=== PATIENT | female | born 1965 | race Caucasian/White ===

== ENCOUNTER 2016-10-06 12:30 | Emergency (ER) | payer OTHER ==
[~2016-10-06] VITALS: Ht 170.2 cm; Wt 80.3 kg
--- NOTE | ~2016-10-06 | CR72 ---
[facility] A Service of [facility] & [facility] RADIOLOGY TEXT RESULTS PATIENT: JAIRON POWER LOCATION: SED : 61 UNIT #: [id number] AGE: [address]: Althea Wood MD SEX: F ORDER DR: [id number] [address] [address] [id number] E MR#: [id number] Acc #: [id number] NAME: JAIRON POWER. : 1965 SEX: F STUDY DATE/TIME: 10/06/2016 13:32 UNIT: SED ROOM: STUDY DESCRIPTION: CR Chest Single View Portable Attending Physician: Althea Wood M.D. Ordering Physician: Althea Wood M.D. Primary Care Physician: Primary Care Physician No MEDICAL IMAGING REPORT This report is preliminary unless electronic signature is present. EXAM Portable chest 10/06 INDICATIONS Shortness of air for 1 week. History of smoking. FINDINGS A single AP portable view of the chest shows both lungs to be clear. The heart is normal in size. The mediastinal contour is normal. No significant bone abnormalities are seen. IMPRESSION Normal portable chest. Dictated by... Rodri Kc Jr., M.D. THIS IS AN ELECTRONICALLY VERIFIED REPORT Rodri Kc Jr., M.D. at 10/08/2016 2:28 PM THELMA/iram TD: 10/06/2016 20:16 JOB #: [id number] MEDICAL IMAGING REPORT Page 1 of 1
--- NOTE | ~2016-10-06 | EKG ---
PATIENT: JAIRON POWER UNIT #: [id number] Ventricular Rate: 83 BPM Atrial Rate: 83 BPM P-R Interval: 158 ms QRS Duration: 104 ms Q-T Interval: 398 ms QTC Calculation(Bezet): 467 ms P [place]: 54 degrees Calculated R [place]: 47 degrees Calculated T [place]: 51 degrees Diagnosis Line: Normal sinus rhythm Diagnosis Line: Normal ECG Diagnosis Line: No previous ECGs available Diagnosis Line: Confirmed by FRANCISCO BOB MD ([id number]) on Diagnosis Line: 10/07/2016 8:52:05 PM INTERPRETING MD: PAULINO ALVAREZ
[~2016-10-06 12:30] MED LIST: ALPRAZOLAM PO; AVELOX400 M1 PO; CELEXA PO; COMBIVENT MININEB INH; HYDROCODON-ACE1 EAC5 PO; MEDROL PO; NORCO 5/325 TAB1 TAB PO; PROAIR HFA8.5 GM IH; ROXICODONE15 MG PO; SOMA PO; ULTRAM PO; VICODIN 5/1 TAB 5/50 PO; VICODIN ES 7.51 EACH PO
[2016-10-06] MEDS ORDERED: ADDERALL20 M1 (12:37)
[2016-10-06] MEDS ORDERED: SOMA (12:37)
[2016-10-06 13:55] LABS: URINE APPEARANCE CLEAR; URINE BILIRUBIN NEG (NEG); URINE BLOOD 1+ (NEG); URINE COLOR YELLOW; URINE GLUCOSE NEG (NORM); URINE KETONE NEG (NEG); URINE LEUKOCYTE ESTERASE 1+ (NEG); URINE NITRATE NEG (NEG); URINE PH 5.5 (5-8); URINE PROTEIN NEG (NEG); URINE SPECIFIC GRAVITY <=1.005 (1.003-1.035); URINE UROBILINOGEN 0.2 MG/DL (NORM)
[2016-10-06 13:56] LABS: BASOPHIL# 0.1 X10e3 (0-0.3); EOSINOPHIL# 0.1 X10e3 (0-0.7); EOSINOPHIL% 1.1 % (0.0-7.0); HEMATOCRIT 45.2 % (35.0-45.0); HEMOGLOBIN 15.4 gm/dL (12.0-16.0); LYMPHOCYTE# 2.1 X10e3 (1.0-3.5); LYMPHOCYTE% 24.3 % (17.0-45.0); MEAN CELL VOLUME 92.5 FL (83-96); MEAN CORPUSCULAR HEMOGLOBIN 31.6 PG (28-34); MEAN CORPUSCULAR HGB CONC 34.2 g/dL (30-36); MEAN PLATELET VOLUME 10.4 FL (6.5-11.5); MONOCYTE# 0.6 X10e3 (0-1.0); MONOCYTE% 6.9 % (3.0-12.0); NEUTROPHIL# 5.7 X10e3 (1.5-7.1); NEUTROPHIL% 66.7 % (40-75); PLATELET COUNT 238 X10e3 (140-420); RED BLOOD COUNT 4.89 X10e (3.90-5.30); RED CELL DISTRIBUTION WIDTH 15.1 % (11.0-15.5); WHITE BLOOD COUNT 8.6 X10e3 (4.0-10.5)
[2016-10-06 14:00] LABS: DIFF IND NO
[2016-10-06 14:00] LABS: MICRO INDICATED? YES; URINE SOURCE CLEAN CATCH
[2016-10-06 14:02] LABS: URINE BACTERIA NEG (NEG); URINE RBC 0-2 /[HPF] (0-2); URINE SQUAMOUS EPITHELIAL CELL FEW /[HPF]
[2016-10-06 14:14] LABS: ALBUMIN SERUM 4.7 g/dL (3.5-5.0); BILIRUBIN, DIRECT 0.1 mg/dL (0.0-0.2); BILIRUBIN,INDIRECT 0.2 mg/dL (0.0-0.9); BILIRUBIN,TOTAL 0.3 mg/dL (0.2-2.0); BUN/CREATININE RATIO 18.33; CALCIUM SERUM 9.2 mg/dL (8.4-10.2); CREATININE SERUM 1.2 mg/dL (0.6-1.4); GLOM FILT RATE Estimated 51.9 mL/min (>60); POTASSIUM 3.3 mmol/L (3.5-5.1); PROTEIN TOTAL SERUM 7.9 g/dL (6.0-8.3)
[2016-10-07 14:43] LABS: POC - CKMB <1.0 ng/mL (0.0-7.9); POC - TROPONIN <0.05 ng/mL (<=0.05)
[2016-10-07 14:45] LABS: POC - CKMB <1.0 ng/mL (0.0-7.9); POC - TROPONIN <0.05 ng/mL (<=0.05)
== END 2016-10-06 15:04 | disposition home or self-care (01) ==
LOC: SED 12:30
PROVIDERS: Student in an Organized Health Care Education/Training Program
DX: R19.7 Diarrhea, unspecified (principal); E86.0 Dehydration; E16.2 Hypoglycemia, unspecified; J45.909 Unspecified asthma, uncomplicated; F17.200 Nicotine dependence, unspecified, uncomplicated; Z90.710 Acquired absence of both cervix and uterus; Z79.899 Other long term (current) drug therapy
CPT/HCPCS: 36415; 71010; 80048; 80076; 81003; 82553; 82947; 83690; 84484; 85025; 93005; 94640; 96361; 96374; 99285; J2405